=== PATIENT | male | born 1960 | race Caucasian/White ===

== ENCOUNTER 2020-05-25 05:50 | Inpatient (IN) | payer OTHER ==
[2020-05-17 10:55] VITALS: BMI 29.0
[2020-05-25] MEDS ORDERED: CEFAZOLIN 2 GM/D5W 2 GM/50 ML ML IVPB ONE (06:30)
[2020-05-25] MEDS ORDERED: CELECOXIB 200 MG CAPSULE PO ONE (06:30)
[2020-05-25] MEDS ORDERED: TRANEXAMIC ACID 1000 MG/10 ML VIAL IVPUSH ONE (06:30)
[2020-05-25] MEDS ORDERED: CELECOXIB 200 MG CAPSULE ONE (06:55)
[2020-05-25] MEDS ORDERED: MIDAZOLAM HCL 2 MG/2 ML SINGLE DOSE VIAL ONE ×2 (06:57→08:10)
[2020-05-25] MEDS ORDERED: BUPIVACAINE HCL/PF 0.5% (5 MG/ML) 30 ML VIAL IJ ONE (06:57)
[2020-05-25] MEDS ORDERED: LOCK ITEM NR ONE (07:02)
[2020-05-25] MEDS ORDERED: ceFAZolin SODIUM 1 GM VIAL ONE ×2 (07:05→08:37)
[2020-05-25] MEDS ORDERED: VANCOMYCIN 1,000 MG VIAL (RESTRICTED TO ID ONLY) ONE (07:05)
[2020-05-25] MEDS ORDERED: DEXAMETHASONE SOD PHOSPHATE 10 MG/1 ML VIAL ONE (07:24)
[2020-05-25] MEDS ORDERED: PROPOFOL 20 ML ONE ×3 (07:53)
[2020-05-25] MEDS ORDERED: DEXAMETHASONE SOD PHOSPHATE 4 MG/1 ML VIAL ONE (08:43)
[2020-05-25] MEDS ORDERED: ONDANSETRON 4 MG/2 ML VIAL ONE (08:43)
[2020-05-25] MEDS ORDERED: VANCOMYCIN 1,000 MG VIAL (RESTRICTED TO ID ONLY) IVPB ONE (09:01)
[2020-05-25] MEDS ORDERED: RIZATRIPTAN BENZOATE 10 MG PO PRN (09:23)
[2020-05-25] MEDS ORDERED: MAG HYDROX/AL HYDROX/SIMETH 30 ML UNIT-DOSE CUP PO PRN (09:24)
[2020-05-25] MEDS ORDERED: MAGNESIUM HYDROX 2400MG/30ML ORAL SUSPENSION 30 ML CUP PO PRN (09:24)
[2020-05-25] MEDS ORDERED: ONDANSETRON 4 MG/2 ML VIAL IVPUSH PRN ×2 (09:24→09:38)
[2020-05-25] MEDS ORDERED: LACTATED RINGERS SOLUTION 1,000 ML IV SCH (09:30)
[2020-05-25] MEDS ORDERED: oxyCODONE HCL 5 MG TABLET PO PRN (09:38)
[2020-05-25] MEDS: ACETAMINOPHEN 1000 MG/100 ML VIAL (NON FORMULARY) IVPB ONE (09:50)
[2020-05-25] MEDS ORDERED: PATIENT'S OWN MEDICATION (NON-FORMULARY) (Dexlansoprazole [Dexilant] 60 MG Cap.Dr.Bp) PO SCH (10:00)
[2020-05-25] MEDS ORDERED: PATIENT'S OWN MEDICATION (NON-FORMULARY) (Topiramate [Topamax] 50 MG Tablet) PO SCH (10:00)
[2020-05-25] MEDS: LACTATED RINGERS SOLUTION 1,000 ML IV SCH (15:25)
[2020-05-25] MEDS: CEFAZOLIN 2 GM/D5W 2 GM/50 ML ML IVPB SCH ×2 (16:03→23:39)
[2020-05-25] MEDS: oxyCODONE HCL 10 MG SUSTAINED ACTING TABLET PO SCH ×2 (16:05→21:47)
[2020-05-25] MEDS: MULTIVITAMINS (DAILY MVI) TABLET (FP) PO SCH (16:05)
[2020-05-25] MEDS: oxyCODONE HCL 5 MG TABLET PO PRN ×2 (18:53→23:39)
[2020-05-25] MEDS: AMITRIPTYLINE HCL 25 MG TABLET PO SCH (21:46)
[2020-05-25] MEDS: SENNOSIDES/DOCUSATE COMBO (SENNA PLUS) TABLET (UD) PO SCH (21:47)
[2020-05-25] MEDS: TOPIRAMATE 25 MG TABLET PO SCH (21:47)
[2020-05-26] MEDS: ACETAMINOPHEN 1000 MG/100 ML VIAL (NON FORMULARY) IVPB ONE (08:06)
[2020-05-26 08:08] LABS: HEMATOCRIT 44.7 % (35.4-49); HEMOGLOBIN 15.2 GM/dl (11.7-16.9); MCH 30.2 pg (25.7-33.7); MEAN CELL VOLUME 88.8 fl (80-96); MEAN PLT VOLUME 9.4 fl (7.5-11.1); PLATELET COUNT 182 K/MM3 (134-434); RBC 5.03 M/mm3 (4.00-5.60); RDW 13.3 % (11.9-15.9); WHITE BLOOD COUNT 12.3 K/mm3 (4.0-10.8)
[2020-05-26] MEDS: oxyCODONE HCL 10 MG SUSTAINED ACTING TABLET PO SCH ×2 (09:33→21:18)
[2020-05-26] MEDS: ASPIRIN 325 MG TABLET PO SCH (09:33)
[2020-05-26] MEDS: TOPIRAMATE 25 MG TABLET PO SCH ×2 (09:34→21:18)
[2020-05-26] MEDS: SENNOSIDES/DOCUSATE COMBO (SENNA PLUS) TABLET (UD) PO SCH ×2 (09:35→21:18)
[2020-05-26] MEDS: MULTIVITAMINS (DAILY MVI) TABLET (FP) PO SCH (09:35)
[2020-05-26] MEDS: PANTOPRAZOLE 40 MG TABLET PO SCH (09:35)
[2020-05-26] MEDS: LACTATED RINGERS SOLUTION 1,000 ML IV SCH (10:49)
[2020-05-26] MEDS: oxyCODONE HCL 5 MG TABLET PO PRN ×2 (13:36→19:01)
[2020-05-26] MEDS: ACETAMINOPHEN 325 MG TABLET (FP) PO PRN (19:53)
[2020-05-26] MEDS: AMITRIPTYLINE HCL 25 MG TABLET PO SCH (21:17)
[2020-05-27] MEDS: ACETAMINOPHEN 325 MG TABLET (FP) PO PRN ×2 (02:02→19:09)
[2020-05-27] MEDS: oxyCODONE HCL 5 MG TABLET PO PRN (02:02)
[2020-05-27] MEDS ORDERED: SODIUM CHLORIDE 250 ML IV STA (06:30)
[2020-05-27 07:45] LABS: HEMOGLOBIN 14.2 GM/dl (11.7-16.9); MCHC 33.1 g/dl (32.0-35.9); MEAN CELL VOLUME 90.4 fl (80-96); MEAN PLT VOLUME 9.5 fl (7.5-11.1); PLATELET COUNT 170 K/MM3 (134-434); RBC 4.75 M/mm3 (4.00-5.60); RDW 13.5 % (11.9-15.9); WHITE BLOOD COUNT 9.1 K/mm3 (4.0-10.8)
[2020-05-27] MEDS: ASPIRIN 325 MG TABLET PO SCH (08:15)
[2020-05-27] MEDS: MULTIVITAMINS (DAILY MVI) TABLET (FP) PO SCH (09:32)
[2020-05-27] MEDS: TOPIRAMATE 25 MG TABLET PO SCH ×2 (09:33→21:45)
[2020-05-27] MEDS: oxyCODONE HCL 10 MG SUSTAINED ACTING TABLET PO SCH ×2 (09:36→21:46)
[2020-05-27] MEDS: PANTOPRAZOLE 40 MG TABLET PO SCH (09:36)
[2020-05-27] MEDS: SENNOSIDES/DOCUSATE COMBO (SENNA PLUS) TABLET (UD) PO SCH ×2 (09:36→21:45)
[2020-05-27] MEDS: LACTATED RINGERS SOLUTION 1,000 ML IV SCH (09:39)
[2020-05-27 12:47] LABS: ALBUMIN 3.6 g/dl (3.4-5.0); BILIRUBIN,TOTAL 1.1 mg/dl (0.2-1); CALCIUM 8.5 mg/dl (8.5-10); POTASSIUM 4.3 mmol/L (3.5-5.1); TOT PROT 6.3 g/dl (6.4-8.2)
[2020-05-27] MEDS: AMITRIPTYLINE HCL 25 MG TABLET PO SCH (21:45)
[2020-05-28] MEDS: oxyCODONE HCL 5 MG TABLET PO PRN ×3 (01:06→22:01)
[2020-05-28] MEDS: ASPIRIN 325 MG TABLET PO SCH (07:47)
[2020-05-28 08:17] LABS: ALBUMIN 3.3 g/dl (3.4-5.0); BILIRUBIN,TOTAL 1.2 mg/dl (0.2-1); CALCIUM 8.5 mg/dl (8.5-10); POTASSIUM 4.1 mmol/L (3.5-5.1); TOT PROT 6.1 g/dl (6.4-8.2)
[2020-05-28 08:18] LABS: EOS % 1.8 % (0-4.5); HEMATOCRIT 44.3 % (35.4-49); LYMPH % 16.7 % (8-40); MCH 30.4 pg (25.7-33.7); MCHC 33.9 g/dl (32.0-35.9); MEAN CELL VOLUME 89.7 fl (80-96); MONO % 9.1 % (3.8-10.2); NEUT % 70.4 % (42.8-82.8); PLATELET COUNT 163 K/MM3 (134-434); RBC 4.94 M/mm3 (4.00-5.60); RDW 13.4 % (11.9-15.9); WHITE BLOOD COUNT 11.9 K/mm3 (4.0-10.8)
[2020-05-28] MEDS: PANTOPRAZOLE 40 MG TABLET PO SCH (09:28)
[2020-05-28] MEDS: SENNOSIDES/DOCUSATE COMBO (SENNA PLUS) TABLET (UD) PO SCH ×2 (09:28→22:03)
[2020-05-28] MEDS: MULTIVITAMINS (DAILY MVI) TABLET (FP) PO SCH (09:29)
[2020-05-28] MEDS: TOPIRAMATE 25 MG TABLET PO SCH ×2 (09:29→22:03)
[2020-05-28] MEDS: LACTATED RINGERS SOLUTION 1,000 ML IV SCH (09:30)
[2020-05-28] MEDS: ACETAMINOPHEN 325 MG TABLET (FP) PO PRN (18:21)
[2020-05-28] MEDS: AMITRIPTYLINE HCL 25 MG TABLET PO SCH (22:03)
[2020-05-29] MEDS: oxyCODONE HCL 5 MG TABLET PO PRN (08:22)
[2020-05-29] MEDS: ASPIRIN 325 MG TABLET PO SCH (09:14)
[2020-05-29] MEDS: TOPIRAMATE 25 MG TABLET PO SCH ×2 (09:51→21:19)
[2020-05-29] MEDS: SENNOSIDES/DOCUSATE COMBO (SENNA PLUS) TABLET (UD) PO SCH ×2 (09:51→21:19)
[2020-05-29] MEDS: MULTIVITAMINS (DAILY MVI) TABLET (FP) PO SCH (09:51)
[2020-05-29] MEDS: PANTOPRAZOLE 40 MG TABLET PO SCH (09:51)
[2020-05-29 10:09] LABS: BASO % 1.5 % (0-2.0); EOS % 1.1 % (0-4.5); HEMOGLOBIN 15.3 GM/dl (11.7-16.9); LYMPH % 11.2 % (8-40); MCH 30.4 pg (25.7-33.7); MCHC 33.9 g/dl (32.0-35.9); MEAN CELL VOLUME 89.7 fl (80-96); MEAN PLT VOLUME 8.8 fl (7.5-11.1); MONO % 4.2 % (3.8-10.2); PLATELET COUNT 198 K/MM3 (134-434); RBC 5.01 M/mm3 (4.00-5.60); RDW 13.3 % (11.9-15.9); WHITE BLOOD COUNT 11.3 K/mm3 (4.0-10.8)
[2020-05-29 10:35] LABS: ALBUMIN 3.3 g/dl (3.4-5.0); BILIRUBIN,TOTAL 1.1 mg/dl (0.2-1); CALCIUM 8.4 mg/dl (8.5-10); CREATININE 1.1 mg/dl (0.55-1.3); MAGNESIUM 1.9 mg/dL (1.8-2.4); POTASSIUM 4.3 mmol/L (3.5-5.1); TOT PROT 5.9 g/dl (6.4-8.2)
[2020-05-29 11:37] LABS: CHOLESTEROL 155 mg/dl (50-200); HDL CHOLESTEROL 29 mg/dl (40-60); LDL CHOLESTEROL (ONLY DFH) 99 mg/dl (5-100); TRIGLYCERIDES 133 mg/dl (0-150)
[2020-05-29] MEDS ORDERED: SODIUM CHLORIDE 500 ML IV STA (11:48)
[2020-05-29] MEDS ORDERED: SODIUM CHLORIDE 1,000 ML IV SCH (12:00)
[2020-05-29] MEDS ORDERED: ENOXAPARIN NA (PORCINE) 80 MG/0.8 ML DISP.SYRIN SQ ONE ×2 (14:55→15:28)
[2020-05-29] MEDS: LACTATED RINGERS SOLUTION 1,000 ML IV SCH (15:36)
[2020-05-29] MEDS: AMITRIPTYLINE HCL 25 MG TABLET PO SCH (21:19)
[2020-05-29 22:14] VITALS: BP 118/80; PULSE 107; TEMP 99.8
[2020-05-30] MEDS ORDERED: ENOXAPARIN NA (PORCINE) 80 MG/0.8 ML DISP.SYRIN SQ SCH (03:30)
== END 2020-05-30 00:25 | disposition short-term general hospital (02) | DRG 301 ==
LOC: FM/S 05:50
PROVIDERS: ADMIT Orthopaedic Surgery; ATTEND Orthopaedic Surgery
PROC: 8E0Y0CZ Robotic Assisted Procedure of Lower Extremity, Open Approach (ICD-10-PCS; 2020-05-25)
PROC: 0SRB0JA Replacement of Left Hip Joint with Synthetic Substitute, Uncemented, Open Approach (ICD-10-PCS; principal; 2020-05-25 08:32)
DX: M16.12 Unilateral primary osteoarthritis, left hip (principal); T81.718A Complication of other artery following a procedure, not elsewhere classified, initial encounter; I26.99 Other pulmonary embolism without acute cor pulmonale; E66.9 Obesity, unspecified; Z68.30 Body mass index [BMI] 30.0-30.9, adult; G43.909 Migraine, unspecified, not intractable, without status migrainosus; R00.0 Tachycardia, unspecified; R50.9 Fever, unspecified; E78.5 Hyperlipidemia, unspecified; F32.9 Major depressive disorder, single episode, unspecified; K59.00 Constipation, unspecified; Y83.8 Other surgical procedures as the cause of abnormal reaction of the patient, or of later complication, without mention of misadventure at the time of the procedure
CPT/HCPCS: 36415; 71045-TC-FY; 71275-TC; 73502-TC-LT-FY; 80053; 80061; 83036; 83735; 83880; 84443; 84484; 85025; 85027; 85379; 86140; 93005; 93970-TC; 94760; 97010-GP; 97116-GP; 97161-GP; C9803; J0131; J1100; Q9967; U0003